=== PATIENT | female | born 1960 | race Hispanic/Latino ===

== ENCOUNTER 2017-03-06 17:39 | Emergency (ER) | payer SELFPAY ==
[2017-03-06 19:01] LABS: Basophils % (Auto) 0.5 % (0.0-1.8); Hematocrit 38.5 % (30.3-42.9); Hemoglobin 12.3 gm/dl (10.1-14.3); Mean Corpuscular HGB Conc 32 % (30-34); Mean Corpuscular Hemoglobin 28 pg (28-32); Mean Corpuscular Volume 87 fl (79-97); Platelet Count 283 K/mm3 (140-440); Red Blood Count 4.42 M/mm3 (3.65-5.03); White Blood Count 12.4 K/mm3 (4.5-11.0)
[2017-03-06 19:18] LABS: Alanine Aminotransferase 33 units/L (7-56); Albumin 4.4 g/dL (3.9-5); Albumin/Globulin Ratio 1.3 %; Alkaline Phosphatase 106 units/L (35-129); Anion Gap 21 mmol/L; Blood Urea Nitrogen 6 mg/dL (7-17); Calcium 9.4 mg/dL (8.4-10.2); Carbon Dioxide 28 mmol/L (22-30); Chloride 95.6 mmol/L (98-107); Glucose 88 mg/dL (65-100); Potassium 4.3 mmol/L (3.6-5.0); Sodium 140 mmol/L (137-145); Total Protein 7.8 g/dL (6.3-8.2)
--- NOTE | 2017-03-06 23:42 | Emergency Department Report ---
ED General Adult HPI - General Chief complaint: Medical Clearance Stated complaint: PEG TUBE REMOVAL Time Seen by Provider: 03/06/17 23:05 Source: patient, RN notes reviewed Mode of arrival: Ambulatory Limitations: No Limitations - History of Present Illness Initial comments: This is a 56-year-old female. She is previously unknown to me. Patient has a past medical history of COPD and is home oxygen dependent. Patient recently discharged from rehabilitation, had a feeding tube placed. She does not know who placed a feeding tube. She does not know why it was placed. She does not know when it was placed. The patient reports that she is eating and drinking normally at home, and requests to have the feeding tube removed. She denies headache, neck pain, abdominal pain, irritative and obstructive urinary symptoms and chest pain. She reports chronic shortness of breath, however this is on a complaint of hers , she reports that this is constant, and not new, worsening or different. Severity scale (0 -10): 0 Improves with: none Worsens with: none Associated Symptoms: denies other symptoms - Related Data Allergies Allergy/AdvReac Type Severity Reaction Status Date / Time levofloxacin [From Levaquin] Allergy Unknown Verified 03/06/17 18:03 metoclopramide HCl Allergy Unknown Verified 03/06/17 18:03 [From Reglan] ED Review of Systems ROS: Stated complaint: PEG TUBE REMOVAL Other details as noted in HPI ED Past Medical Hx - Past Medical History Previous Medical History?: Yes Hx Hypertension: Yes Hx COPD: Yes (4L per [place] at home) Additional medical history: emphysema - Surgical History Past Surgical History?: Yes Hx Cholecystectomy: Yes Additional Surgical History: Umbilical hernia - Social History Smoking Status: Former Smoker Substance Use Type: None ED Physical Exam - General Limitations: No Limitations General appearance: alert, in no apparent distress, obese - Head Head exam: Present: atraumatic, normocephalic - Eye Eye exam: Present: normal appearance, EOMI. Absent: nystagmus - ENT ENT exam: Present: normal exam, normal orophraynx, mucous membranes moist - Neck Neck exam: Present: normal inspection, full ROM. Absent: tenderness - Respiratory Respiratory exam: Present: wheezes (mild wheezing noted). Absent: respiratory distress - Cardiovascular Cardiovascular Exam: Present: regular rate, normal rhythm, normal heart sounds. Absent: systolic murmur, diastolic murmur, rubs, gallop - GI/Abdominal GI/Abdominal exam: Present: soft, normal bowel sounds, other (left upper quadrant feeding tube , stoma is clean, no redness, pus, streaking or cellulitis. There is no tenderness.). Absent: distended, tenderness, guarding , rebound, rigid, pulsatile mass - Extremities Exam Extremities exam: Present: normal inspection, normal capillary refill. Absent: calf tenderness - Back Exam Back exam: Present: normal inspection, full ROM. Absent: tenderness, CVA tenderness (L), muscle spasm, paraspinal tenderness, vertebral tenderness - Neurological Exam Neurological exam: Present: alert, oriented X3, normal gait, other (Extraocular movements intact. Tongue midline. No facial droop. Facial sensation intact to light touch in the V1, V2, V3 distribution bilaterally. 5 and 5 strength in 4 extremities.. Sensation is intact to light touch in 4 extremities.). Absent : motor sensory deficit - Psychiatric Psychiatric exam: Present: normal affect, normal mood - Skin Skin exam: Present: warm, dry, intact, normal color. Absent: rash ED Course Vital Signs 03/06/17 03/06/17 18:03 23:30 Temperature 97.7 F Pulse Rate 89 90 Respiratory 28 H 20 Rate Blood Pressure 146/113 Blood Pressure 149/91 [Right] O2 Sat by Pulse 98 100 Oximetry ED Medical Decision Making - Lab Data Result diagrams: 03/06/17 18:23 03/06/17 18:23 Vital Signs - 24 hr 03/06/17 18:03 Temperature 97.7 F Pulse Rate 89 Respiratory 28 H Rate Blood Pressure 146/113 O2 Sat by Pulse 98 Oximetry Lab Results 03/06/17 03/06/17 Range/Units 18:23 18:23 WBC 12.4 H (4.5-11.0) K/mm3 RBC 4.42 (3.65-5.03) M/mm3 Hgb 12.3 (10.1-14.3) gm/dl Hct 38.5 (30.3-42.9) % MCV 87 (79-97) fl MCH 28 (28-32) pg MCHC 32 (30-34) % RDW 17.0 H (13.2-15.2) % Plt Count 283 (140-440) K/mm3 Lymph % (Auto) 22.1 (13.4-35.0) % [place] % (Auto) 9.1 H (0.0-7.3) % Eos % (Auto) 1.0 (0.0-4.3) % Baso % (Auto) 0.5 (0.0-1.8) % Lymph # 2.7 (1.2-5.4) K/mm3 [place] # 1.1 H (0.0-0.8) K/mm3 Eos # 0.1 (0.0-0.4) K/mm3 Baso # 0.1 (0.0-0.1) K/mm3 Seg Neutrophils % 67.3 (40.0-70.0) % Seg Neutrophils # 8.4 H (1.8-7.7) K/mm3 Sodium 140 (137-145) mmol/L Potassium 4.3 (3.6-5.0) mmol/L Chloride 95.6 L (98-107) mmol/L Carbon Dioxide 28 (22-30) mmol/L Anion Gap 21 mmol/L BUN 6 L (7-17) mg/dL Creatinine 0.5 L (0.7-1.2) mg/dL Estimated GFR > 60 ml/min BUN/Creatinine Ratio 12.00 % Glucose 88 (65-100) mg/dL Calcium 9.4 (8.4-10.2) mg/dL Total Bilirubin 0.30 (0.1-1.2) mg/dL AST 38 (5-40) units/L ALT 33 (7-56) units/L Alkaline Phosphatase 106 (35-129) units/L Total Protein 7.8 (6.3-8.2) g/dL Albumin 4.4 (3.9-5) g/dL Albumin/Globulin Ratio 1.3 % - EKG Data -: EKG Interpreted by Co EKG shows normal: sinus rhythm - EKG Data 03/07/17 02:06 motion artifact, 85 bpm, QTC prolonged at 452 ms, borderline atrial enlargement, not morphologically consistent with STEMI. Patient asymptomatic, not having chest pain - Medical Decision Making Differential diagnosis: Chronic COPD, Gen. medical evaluation, encounter for feeding tube removal Assessment and plan: 56-year-old female here for feeding tube removal. She is otherwise afebrile, with reassuring vital signs, and has no acute symptoms. She is chronic shortness of breath and does not appear to be clinically or acutely decompensated in this capacity. She is acutely asymptomatic in this capacity. I explained to the patient that she will need to follow up with outpatient gastroenterology for consideration of having her feeding tube removed. The patient is instructed to contact medical records and get her recent medical records for feeding tube placement and to follow up with outpatient GI. She is reliable for discharge at this point in time, she is accompanied by her , and they agreed to follow up with outpatient GI. Critical care attestation.: If time is entered above; I have spent that time in minutes in the direct care of this critically ill patient, excluding procedure time. ED Disposition Clinical Impression: Uses feeding tube, Chronic obstructive pulmonary disease Disposition: TO HOME OR SELFCARE Is pt being admited?: No Does the pt Need Aspirin: No Condition: Stable Instructions: Chronic Obstructive Pulmonary Disease (ED) Additional Instructions: Continue current outpatient medications. Contact the medical records department and obtain medical records. Follow-up with a dark room attendant within the next week. Contact [facility] at the following phone number: [phone] ([phone]) Return to the ER right away with fevers, chills, chest pain, shortness of breath , intractable nausea or vomiting, confusion, inability to tolerate liquid feeds. Referrals: PRIMARY CARE, [Primary Care Provider] - 3-5 Days JOSE SIMMONS MD [Staff Physician] - 3-5 Days
[2017-03-06 23:51] VITALS: BP 149/91
== END 2017-03-06 23:45 | disposition home or self-care (01) ==
LOC: ED 17:39
DX: J44.9 Chronic obstructive pulmonary disease, unspecified (principal)
CPT/HCPCS: 36415; 80053; 85025; 93005; 93010